=== PATIENT | male | born 2000 | race Caucasian/White ===

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

== ENCOUNTER 2024-06-27 10:07 | Emergency (ER) | payer OTHER, SELFPAY ==
[2024-06-27] MEDS ORDERED: NA CHLORIDE 0.9% 1,000 ML ONE (11:48)
[2024-06-27 11:58] LABS: Absolute Lymphocytes (CBC) 2.3 K/uL (0.7-4.9); Absolute Monocytes 0.7 K/uL (0.1-1.3); Absolute Neutrophil 7.3 K/uL (1.8-8.0); Basophils % 0.2 % (0-1.3); Eosinophils % 0.3 % (0-4.4); Hematocrit 50.6 % (39.6-49.0); Hemoglobin 17.8 g/dL (13.6-17.9); Lymphocytes % 22.1 % (15.3-44.8); MCH 31.2 pg (27.0-35.0); MCHC 35.3 g/dL (32.0-36.0); MCV 88.4 fL (80-100); MPV 8.8 fL (7.6-11.3); Monocytes % 7.1 % (3.3-12.3); Neutrophils % 70.3 % (41.7-73.7); Nucleated Red Blood Cells % 0.1 % (0-0); Platelets 188 thou/uL (152-406); RBC Red Blood Cell Count 5.72 M/uL (4.33-5.43); Red Cell Distribution Width 13.5 % (12.1-15.2)
[2024-06-27 12:15] LABS: Albumin 4.5 g/dL (3.4-5.0); Albumin/Globulin Ratio 1.1 (1.1-1.8); Anion Gap 8.7 mEq/L (5.0-15.0); Bilirubin Total 0.5 mg/dL (0.2-1.0); Potassium 4.7 mEq/L (3.5-5.1); Protein, Total 8.5 g/dL (6.4-8.2); Troponin High Sensitivity 55.7 pg/mL (<58.9)
[2024-06-27 12:25] LABS: Urine Bilirubin NEGATIVE (Negative); Urine Clarity Clear (Clear); Urine Color Yellow (Yellow); Urine Glucose Negative (Negative); Urine Ketones Negative (Negative)
[2024-06-27 12:26] LABS: Urine Blood Trace-intact (Negative); Urine Nitrite Negative (Negative); Urine Protein Negative (Negative); Urine Urobilinogen 0.2 mg/dL (0.2-1.0)
[2024-06-27 12:30] LABS: Urine Microscopic Reflex YN NO UMIC
--- NOTE | 2024-06-27 14:40 | ER ---
Nurse's Notes [facility] Name: Avni Mcdermott Jr Age: 24 yrs Sex: Male : 2000 Arrival Date: 06/27/2024 Time: 10:07 Bed 12 Private MD: Diagnosis: Chest pain, unspecified Presentation: 06/27 10:25 Chief complaint: Patient states: Right sided CP, radiates to back x 4 days, worse with jl7 deep breath, feels like stabbing. Coronavirus screen: At this time, the client does not indicate any symptoms associated with coronavirus-19. Ebola Screen: No symptoms or risks identified at this time. Initial Sepsis Screen: Does the patient meet any 2 criteria? No. Patient's initial sepsis screen is negative. Does the patient have a suspected source of infection? No. Patient's initial sepsis screen is negative. Risk Assessment: Do you want to hurt yourself or someone else? Patient reports no desire to harm self or others. Onset of symptoms was June 23, 2024. 10:25 Method Of Arrival: Ambulatory 7 10:25 Acuity: JOSE 2 jl7 Triage Assessment: 10:29 General: Appears in no apparent distress. uncomfortable, Behavior is calm, cooperative, jl7 appropriate for age. Pain: Complains of pain in anterior aspect of right upper chest Pain currently is 7 out of 10 on a pain scale. Cardiovascular: Patient's skin is warm and dry. Historical: - Allergies: 10:29 none; jl7 - PMHx: 10:29 Anxiety; Asthma; Depression; jl7 - Immunization history:: Adult Immunizations unknown. - Infectious Disease History:: Denies. - Social history:: Smoking status: Patient reports the use of cigarette tobacco products, denies chronic smoking, but will smoke occasionally, Reported history of juuling and/or vaping. Screenin:59 [facility] ED Fall Risk Assessment (Adult) History of falling in the last 3 months, cm10 including since admission No falls in past 3 months (0 pts) Confusion or Disorientation No (0 pts) Intoxicated or Sedated No (0 pts) Impaired Gait No (0 pts) Mobility Assist Device Used No (0 pt) Altered Elimination No (0 pt) Score/Fall Risk Level 0 - 2 = Low Risk Oriented to surroundings, Maintained a safe environment, Hourly rounding (assess needs \T\ fall precautionary measures) done. Abuse screen: Denies threats or abuse. Denies injuries from another. Nutritional screening: No deficits noted. Tuberculosis screening: No symptoms or risk factors identified. Assessment: 13:06 Reassessment: Patient appears in no apparent distress at this time. Patient and/or cm10 family updated on plan of care and expected duration. Pain level reassessed. Patient is alert, oriented x 3, equal unlabored respirations, skin warm/dry/pink. Vital Signs: 10:25 BP 157 / 97; Pulse 100; Resp 17; Temp 97.9; Pulse Ox 95% on R/A; Weight 88.45 kg; jl7 Height 6 ft. 3 in. ; Pain 7/10; 12:00 BP 128 / 81; Pulse 78; Resp 16; Pulse Ox 99% ; cm10 12:30 BP 119 / 74; Pulse 67; Resp 16; Pulse Ox 99% ; cm10 15:58 BP 122 / 87; Pulse 84; Resp 16; Pulse Ox 99% ; cm10 10:25 Body Mass Index 24.37 (88.45 kg, 190.5 cm) jl7 10:25 Pain Scale: Adult jl7 ED Course: 10:14 Patient arrived in ED. im 10:21 Jon Martinez MD is Attending Physician. [facility] 10:29 Triage completed. jl7 10:29 Arm band placed on right wrist. jl7 11:59 Patient has correct armband on for positive identification. Bed in low position. Call cm10 light in reach. Side rails up X 1. Pulse ox on. NIBP on. 11:59 Lipase Sent. cm10 11:59 CMP Sent. cm10 11:59 CBC with Diff Sent. cm10 11:59 Troponin High Sensitivity Sent. cm10 11:59 UA Rfx Manuel Cult if indicated Sent. cm10 11:59 Initial lab(s) drawn, by dc, sent to lab. Inserted saline lock: 20 gauge in left cm10 antecubital area, using aseptic technique. Blood collected. Flushed with 10 mL NS. 13:30 CT Chest For PE Angio In Process Unspecified. EDMS 13:42 Troponin HS: now Sent. ty 14:39 Prasad Rogers MD is Referral Physician. [facility] 15:58 Provided Education on: Follow-up instructions. [facility] 15:58 No provider procedures requiring assistance completed. IV discontinued, intact, cm10 bleeding controlled, No redness/swelling at site. Pressure dressing applied. Patient maintains SpO2 saturation greater than 95% on room air. Administered Medications: 11:59 Drug: NS 0.9% IV 1000 ml IV at 1 bolus Per protocol; to be given as a bolus over 60 cm10 minutes Route: IV; Rate: 1 bolus; Site: left antecubital; 13:05 Follow up: Response: No adverse reaction; IV Status: Completed infusion; IV Intake: cm10 1000ml Medication: 11:59 VIS not applicable for this client. cm10 Intake: 13:05 IV: 1000ml; Total: 1000ml. cm10 Outcome: 14:39 Discharge ordered by . bigg 15:58 Discharged to home ambulatory, 10 15:58 Condition: good 15:58 Discharge instructions given to patient, Instructed on discharge instructions, follow up and referral plans. Demonstrated understanding of instructions, follow-up care, medications, Prescriptions given X 1, 15:59 Patient left the ED. cm10 Signatures: Dispatcher [employer] EDJon Isbael MD MD cha Leal, Jahala, RN RN jl7 Ciarra Gutierres Clarissa, RN RN cm10 Chirag Montoya
--- NOTE | 2024-06-27 14:40 | EDPHYS ---
Physician Documentation [facility] Name: Avni Mcdermott Jr Age: 24 yrs Sex: Male : 2000 Arrival Date: 06/27/2024 Time: 10:07 Bed 12 Private MD: ED Physician Jon Martinez HPI: 06/27 13:07 This 24 yrs old Male presents to ER via Ambulatory with complaints of Chest bigg Pain, Back Pain. 13:07 The patient or guardian reports chest pain that is located primarily in the anterior bigg chest wall, right. The pain does not radiate. Associated signs and symptoms: The patient has no apparent associated signs or symptoms. The chest pain is described as aching. Modifying factors: The symptoms are alleviated by nothing. the symptoms are aggravated by nothing. Severity of pain: At its worst the pain was moderate in the emergency department the pain is unchanged. The patient has not experienced similar symptoms in the past. Historical: - Allergies: 10:29 none; jl7 - PMHx: 10:29 Anxiety; Asthma; Depression; jl7 - Immunization history:: Adult Immunizations unknown. - Infectious Disease History:: Denies. - Social history:: Smoking status: Patient reports the use of cigarette tobacco products, denies chronic smoking, but will smoke occasionally, Reported history of juuling and/or vaping. ROS: 13:09 Constitutional: Negative for fever, chills, and weight loss, Eyes: Negative for injury, bigg pain, redness, and discharge, ENT: Negative for injury, pain, and discharge, Neck: Negative for injury, pain, and swelling, Respiratory: Negative for shortness of breath, cough, wheezing, and pleuritic chest pain, Abdomen/GI: Negative for abdominal pain, nausea, vomiting, diarrhea, and constipation, Back: Negative for injury and pain, : Negative for injury, bleeding, discharge, and swelling, MS/Extremity: Negative for injury and deformity, Skin: Negative for injury, rash, and discoloration, Neuro: Negative for headache, weakness, numbness, tingling, and seizure, Psych: Negative for depression, anxiety, suicide ideation, homicidal ideation, and hallucinations, Allergy/Immunology: Negative for hives, rash, and allergies, Endocrine: Negative for neck swelling, polydipsia, polyuria, polyphagia, and marked weight changes, Hematologic/Lymphatic: Negative for swollen nodes, abnormal bleeding, and unusual bruising, 13:09 Cardiovascular: Positive for chest pain, of the chest, Exam: 13:10 Constitutional: This is a well developed, well nourished patient who is awake, alert, bigg and in no acute distress. Head/Face: Normocephalic, atraumatic. Eyes: Pupils equal round and reactive to light, extra-ocular motions intact. Lids and lashes normal. Conjunctiva and sclera are non-icteric and not injected. Cornea within normal limits. Periorbital areas with no swelling, redness, or edema. ENT: Nares patent. No nasal discharge, no septal abnormalities noted. Tympanic membranes are normal and external auditory canals are clear. Oropharynx with no redness, swelling, or masses, exudates, or evidence of obstruction, uvula midline. Mucous membranes moist. Neck: Trachea midline, no thyromegaly or masses palpated, and no cervical lymphadenopathy. Supple, full range of motion without nuchal rigidity, or vertebral point tenderness. No Meningismus. Cardiovascular: Regular rate and rhythm with a normal S1 and S2. No gallops, murmurs, or rubs. Normal PMI, no JVD. No pulse deficits. Respiratory: Lungs have equal breath sounds bilaterally, clear to auscultation and percussion. No rales, rhonchi or wheezes noted. No increased work of breathing, no retractions or nasal flaring. Abdomen/GI: Soft, non-tender, with normal bowel sounds. No distension or tympany. No guarding or rebound. No evidence of tenderness throughout. Back: No spinal tenderness. No costovertebral tenderness. Full range of motion. Male : Normal genitalia with no discharge or lesions. Skin: Warm, dry with normal turgor. Normal color with no rashes, no lesions, and no evidence of cellulitis. MS/ Extremity: Pulses equal, no cyanosis. Neurovascular intact. Full, normal range of motion., bilateral aka Neuro: Awake and alert, GCS 15, oriented to person, place, time, and situation. Cranial nerves II-XII grossly intact. Motor strength 5/5 in all extremities. Sensory grossly intact. Cerebellar exam normal. Normal gait. Psych: Awake, alert, with orientation to person, place and time. Behavior, mood, and affect are within normal limits. 13:10 Chest/axilla: Inspection: normal, Palpation: tenderness, that is mild, of the anterior aspect of right upper chest and right breast, 14:36 ECG was reviewed by the Attending Physician. [facility] 14:36 ECG was reviewed by the Attending Physician. [facility] Vital Signs: 10:25 BP 157 / 97; Pulse 100; Resp 17; Temp 97.9; Pulse Ox 95% on R/A; Weight 88.45 kg; jl7 Height 6 ft. 3 in. ; Pain 7/10; 12:00 BP 128 / 81; Pulse 78; Resp 16; Pulse Ox 99% ; cm10 12:30 BP 119 / 74; Pulse 67; Resp 16; Pulse Ox 99% ; cm10 15:58 BP 122 / 87; Pulse 84; Resp 16; Pulse Ox 99% ; cm10 10:25 Body Mass Index 24.37 (88.45 kg, 190.5 cm) jl7 10:25 Pain Scale: Adult jl7 MDM: 10:21 Medical Screening Exam initiated [facility] 13:12 Differential diagnosis: abnormal EKG, acute myocardial infarction, acute pericarditis, bigg anxiety, chest wall pain, congestive heart failure cholecystitis, Cholelithiasis costochondritis, esophagitis, gastritis, herpes zoster, pancreatitis, peptic ulcer disease, pericarditis, pulmonary embolus, stable angina, thoracic aortic disection, unstable angina. HEART Score: ECG: Non specific repolarization disturbance / LBTB / PM (1), Age: < or = 45 years (0), Risk Factors: No Risk Factors Known (0), Troponin: < or = 1 x Normal Limit (0), Total Score = 1. SILKE Risk Score: TOTAL SCORE = 1. Data reviewed: vital signs, nurses notes, lab test result(s), EKG, radiologic studies, plain films. Consideration of Admission/Observation Escalation of care including admission/observation considered. I considered the following discharge prescriptions or medication management in the emergency department Medications were administered in the Emergency Department. See MAR. Independent interpretation of the following test(s) in the Emergency Department EKG: See my EKG interpretation above. Test considered but Not performed: Ultrasound no 2 d echo. Historians other than the Patient: pt well informed. 06/27 10: Order name: CBC with Diff; Complete Time: 13: [facility] 06/27 10:22 Order name: CMP; Complete Time: 13: [facility] 06/27 10:22 Order name: Lipase; Complete Time: 13:06 [facility] 06/27 10:22 Order name: Troponin High Sensitivity; Complete Time: 13:06 [facility] 06/27 10:22 Order name: UA Rfx Manuel Cult if indicated; Complete Time: 13:06 [facility] 06/27 13:07 Order name: Troponin HS: now; Complete Time: 14:37 [facility] 06/27 13:07 Order name: CT Chest For PE Angio [facility] 06/27 10:22 Order name: EKG - Nurse/Tech; Complete Time: 12:58 [facility] 06/27 13:21 Order name: EKG - Nurse/Tech: repeat; Complete Time: 14:28 ty EC:36 Rate is 100 beats/min. Rhythm is regular. QRS [place] is Normal. [place] interval is normal. bigg QRS interval is normal. QT interval is normal. No Q waves. T waves are Normal. No ST changes noted. Clinical impression: NSR w/ Non-specific ST/T Changes and No evidence of ischemia. Interpreted by me. Reviewed by me. 14:36 Rate is 67 beats/min. Rhythm is regular. QRS [place] is Normal. [place] interval is normal. QRS bigg interval is normal. QT interval is normal. No Q waves. T waves are Normal. No ST changes noted. Clinical impression: NSR w/ Non-specific ST/T Changes and No evidence of ischemia. Interpreted by me. Reviewed by me. Administered Medications: 11:59 Drug: NS 0.9% IV 1000 ml IV at 1 bolus Per protocol; to be given as a bolus over 60 cm10 minutes Route: IV; Rate: 1 bolus; Site: left antecubital; 13:05 Follow up: Response: No adverse reaction; IV Status: Completed infusion; IV Intake: cm10 1000ml Disposition Summary: 06/27/24 14:39 Discharge Ordered Notes: Location: Home bigg Problem: new bigg Symptoms: have improved bigg Condition: Stable bigg Diagnosis - Chest pain, unspecified bigg Followup: bigg - With: Private Physician - When: 2 - 3 days - Reason: Recheck today's complaints, Continuance of care, Re-evaluation by your physician Followup: bigg - With: Prasad Rogers MD - When: 2 - 3 days - Reason: Recheck today's complaints, Continuance of care, Re-evaluation by your physician Discharge Instructions: - Discharge Summary Sheet bigg - Nonspecific Chest Pain, Adult bigg - Chest Wall Pain bigg - Chest Wall Pain, [id number] bigg - Nonspecific Chest Pain, Adult, [id number] bigg - Aspirin and Your Heart bigg Forms: - Medication Reconciliation Form bigg - Antibiotic Education bigg - Prescription Opioid Use bigg - Patient Portal Instructions bigg - Leadership Thank You Letter [facility] Prescriptions: - Pepcid 20 mg Oral tablet - take 1 tablet ORAL route every 12 hours for 21 days; 42 tablet; Refills: 0, bigg Product Selection Permitted Signatures: Dispatcher [employer] EDMS Jon Martinez MD MD cha Leal, Jahala RN RN jl7 Gale Mcwilliams RN RN cm10 Chirag Montoya ty Corrections: (The following items were deleted from the chart) 10:23 10:23 CBC+H.LAB.BRZ ordered. EDMS EDMS 10:23 10:23 COMPREHENSIVE METABOLIC PANEL+C.LAB.BRZ ordered. EDMS EDMS 10:23 10:23 LIPASE+C.LAB.BRZ ordered. EDMS EDMS 10:23 10:23 Troponin High Sensitivity+C.LAB.BRZ ordered. EDMS EDMS 10:23 10:23 UA Rfx Manuel Cult if indicated+U.LAB.BRZ ordered. EDMS EDMS 13:08 13:08 Chest For PE Angio+CT.RAD.BRZ ordered. EDMS EDMS
[2024-06-27 16:09] VITALS: TEMP 97.9
[2024-06-27 16:11] VITALS: O2SAT 99
[2024-06-27 16:14] VITALS: BP 122/87
--- NOTE | 2024-06-27 20:39 | RAD REPORT ---
EXAM: CT CT CHEST ANGIOGRAPHY WITH IV CONTRAST TECHNIQUE: CT angiogram of the chest was performed following intravenous contrast administration, inc luding sagittal and coronal as well as maximum intensity projection reformats. One or more of the following dose reduction techniques were used: Automated exposure control, adjustment of the mA and k V according to patient size, and iterative reconstruction. Unless otherwise specified, incidental findings do not require dedicated imaging follow-up. INDICATION: Bed Name: 12 COMPARISON: 08/09/2020 chest radiograph. FINDINGS: LINES/TUBES: None. PULMONARY ARTERIES: Main pulmonary arteries are normal in caliber. No filling defects within the pu lmonary arteries to suggest pulmonary embolus. LUNGS AND AIRWAYS: The lungs and central airways are normal without focal abnormality. PLEURA: No effusion or pneumothorax. HEART AND MEDIASTINUM: The visualized thyroid gland is normal. No mediastinal, hilar, or axillary lym phadenopathy. Heart is unremarkable. No pericardial effusion. SOFT TISSUES AND BONES: No acute osseous abnormality. No significant soft tissue finding. UPPER ABDOMEN: Unremarkable. IMPRESSION: No evidence of acute central pulmonary emboli. No suspicious intrathoracic findings.. Electronically signed by: Rosales Hansen MD 06/27/2024 03:49 PM CDT Due to temporary technical issues with the PACS/[employer] reporting system, reports are being bette d by the in-house radiologist without review as a courtesy to ensure prompt reporting the interpreting radiologist is fully responsible for the content of the report. Transcribed Date/Time: 06/27/2024 8:39 PM
--- NOTE | 2024-07-01 16:55 | EKG ---
Test Date: 2024-06-27 Test Time: 14:17:39 Bill Distributor: EVA MEASUREMENT RESULTS: Intervals: Rate: 67 NC: 152 QRSD: 86 QT: 394 QTc: 416 [place]: P: 41 NC: 152 QRS: 92 T: 54 INTERPRETIVE STATEMENTS: Normal sinus rhythm with sinus arrhythmia Rightward axis ST elevation, probably due to early repolarization Borderline ECG Compared to ECG 06/27/2024 10:25:25 ST (T wave) deviation now present Atrial abnormality no longer present Electronically Signed On 07-01-24 16:49:33 CDT by Rafael Jesus
--- NOTE | 2024-07-01 16:56 | EKG ---
Test Date: 2024-06-27 Test Time: 10:25:25 Child Protection Specialist: KANG MEASUREMENT RESULTS: Intervals: Rate: 100 AK: 138 QRSD: 80 QT: 332 QTc: 428 [place]: P: 72 AK: 138 QRS: 93 T: 63 INTERPRETIVE STATEMENTS: Normal sinus rhythm Right atrial enlargement Rightward axis Early repolarization Borderline ECG Compared to ECG 08/09/2020 13:30:30 ST (T wave) deviation no longer present Electronically Signed On 07-01-24 16:50:08 CDT by Rafael Jesus
== END 2024-06-27 15:59 | disposition home or self-care (01) ==
LOC: ER 10:07
DX: R07.9 Chest pain, unspecified (principal); F17.210 Nicotine dependence, cigarettes, uncomplicated
CPT/HCPCS: 36415; 71275; 80053; 81003; 83690; 84484; 85025; 93005; 96360; 99284; J7030; Q9967